=== PATIENT | male | born 1980 | race Caucasian/White ===

== ENCOUNTER → 2023-10-19 10:13 | Outpatient (REF) | payer OTHER, BC, SELFPAY ==
[2023-10-19 11:26] LABS: % Basophils 0.7 % (0-2); % Immature Granulocytes 0.7 % (0-0.5); % Lymphocytes 24.6 % (20.5-51.1); % Monocytes 11.5 % (1.7-9.3); % Neutrophils 62.5 % (42.2-75.2); Absolute Lymphocytes 1.4 10^3/uL (1.2-3.4); Absolute Monocytes 0.6 10^3/uL (0.1-0.6); Absolute Neutrophils 3.5 10^3/uL (1.4-6.5); Hematocrit 42.8 % (39.0-52.0); Hemoglobin 14.1 g/dL (13.0-18.0); Mean Corp Hgb Conc. 32.9 g/dL (33.0-37.0); Mean Corpuscular Volume 84.9 fL (80.0-94.0); Mean Platelet Volume 10.2 fL (7.4-10.4); Nucleated Red Blood Cells % 0 % (-); Platelet Count 224 10^3/uL (130-400); Red Blood Cell Count 5.04 10^6/uL (4.70-6.10); Red Cell Dist. Width 13.3 % (11.5-14.5); White Blood Cell Count 5.6 10^3/uL (4.8-10.8)
[2023-10-19 11:59] LABS: ALT (SGPT) 49 U/L (0-50); AST (SGOT) 31 U/L (17-59); Albumin 4.6 g/dl (3.5-5.0); Alkaline Phosphatase 49 U/L (38-126); Blood Urea Nitrogen 21 mg/dl (9-20); Calcium 9.5 mg/dl (8.4-10.2); Carbon Dioxide 24 mmol/L (22-30); Chloride 108 mmol/L (98-107); Glucose 94 mg/dl (70-99); HDL Cholesterol 40 mg/dl; LDL Cholesterol, Calculated 91 mg/dl; Potassium 4.2 mmol/L (3.5-5.1); Sodium 141 mmol/L (135-145); Total Bilirubin 0.8 mg/dl (0.2-1.3); Total Cholesterol 172 mg/dl (50-199); Total Protein 7.1 g/dl (6.3-8.2); Triglyceride 208 mg/dl (10-149); Very Low Density Lipoprotein 41 mg/dl (0-30); eGFR > 60.00
[2023-10-19 12:13] LABS: Vitamin D, 25-OH*** 29.9 ng/mL (30-80)
[2023-10-19 12:26] LABS: TSH 1.12 uIU/ml (0.47-4.68)
[2023-10-19 13:39] LABS: Glycohemoglobin (HgbA1c) 5.1 % (4.0-5.6)
== END ==
LOC: REG 10:13
PROVIDERS: ATTENDING PHYSICIAN Family Medicine
DX: Z00.00 Encounter for general adult medical examination without abnormal findings (principal); R73.09 Other abnormal glucose; F10.11 Alcohol abuse, in remission; Z79.899 Other long term (current) drug therapy; E78.1 Pure hyperglyceridemia; E78.89 Other lipoprotein metabolism disorders; E55.9 Vitamin D deficiency, unspecified
CPT/HCPCS: 36415; 80053; 80061; 82306; 83036; 84439; 84443; 85025

== ENCOUNTER → 2024-05-30 11:21 | Outpatient (REF) | payer BC, SELFPAY ==
[2024-05-30 12:14] LABS: % Basophils 0.9 % (0-2); % Immature Granulocytes 0.5 % (0-0.5); % Lymphocytes 27.1 % (20.5-51.1); % Monocytes 11.1 % (1.7-9.3); % Neutrophils 60.4 % (42.2-75.2); Absolute Basophils 0.1 10^3/uL (0-0.2); Absolute Lymphocytes 1.5 10^3/uL (1.2-3.4); Absolute Monocytes 0.6 10^3/uL (0.1-0.6); Absolute Neutrophils 3.3 10^3/uL (1.4-6.5); Hematocrit 44.1 % (39.0-52.0); Hemoglobin 14.7 g/dL (13.0-18.0); Mean Corp Hgb Conc. 33.3 g/dL (33.0-37.0); Mean Corpuscular Hgb 28.3 pg (27.0-31.0); Mean Platelet Volume 10.7 fL (7.4-10.4); Nucleated Red Blood Cells % 0 % (-); Platelet Count 245 10^3/uL (130-400); Red Blood Cell Count 5.19 10^6/uL (4.70-6.10); Red Cell Dist. Width 13.2 % (11.5-14.5); White Blood Cell Count 5.5 10^3/uL (4.8-10.8)
[2024-05-30 13:29] LABS: ALT (SGPT) 74 U/L (0-50); AST (SGOT) 38 U/L (17-59); Albumin 4.7 g/dl (3.5-5.0); Alkaline Phosphatase 53 U/L (38-126); Blood Urea Nitrogen 16 mg/dl (9-20); Calcium 9.5 mg/dl (8.4-10.2); Carbon Dioxide 25 mmol/L (22-30); Chloride 105 mmol/L (98-107); Glucose 93 mg/dl (70-99); Potassium 4.9 mmol/L (3.5-5.1); Sodium 140 mmol/L (135-145); Total Bilirubin 0.7 mg/dl (0.2-1.3); Total Protein 7.1 g/dl (6.3-8.2); eGFR > 60.00
== END ==
LOC: REG 11:21
PROVIDERS: ATTENDING PHYSICIAN Physician Assistant Medical
DX: K92.1 Melena (principal)
CPT/HCPCS: 36415; 80053; 85025

== ENCOUNTER → 2024-05-31 11:51 | Outpatient (REF) | payer BC, SELFPAY | LOC: REG 11:51 | PROVIDERS: ATTENDING PHYSICIAN Physician Assistant Medical; OTHER PHYSICIAN Student in an Organized Health Care Education/Training Program | DX: R19.7 Diarrhea, unspecified (principal) | CPT/HCPCS: 87045; 87046; 87324; 87328; 87329; 87427; 87449 ==

== ENCOUNTER → 2024-06-06 13:08 | Outpatient (REF) | payer BC, SELFPAY ==
[2024-06-06 13:54] LABS: Hematocrit 44.2 % (39.0-52.0); Hemoglobin 15.1 g/dL (13.0-18.0); Mean Corp Hgb Conc. 34.2 g/dL (33.0-37.0); Mean Corpuscular Hgb 28.9 pg (27.0-31.0); Mean Corpuscular Volume 84.5 fL (80.0-94.0); Mean Platelet Volume 10.9 fL (7.4-10.4); Platelet Count 244 10^3/uL (130-400); Red Blood Cell Count 5.23 10^6/uL (4.70-6.10); Red Cell Dist. Width 13.3 % (11.5-14.5); White Blood Cell Count 4.7 10^3/uL (4.8-10.8)
[2024-06-06 14:23] LABS: ALT (SGPT) 88 U/L (0-50); AST (SGOT) 42 U/L (17-59); Albumin 4.8 g/dl (3.5-5.0); Alkaline Phosphatase 52 U/L (38-126); Blood Urea Nitrogen 15 mg/dl (9-20); Calcium 9.6 mg/dl (8.4-10.2); Carbon Dioxide 26 mmol/L (22-30); Chloride 104 mmol/L (98-107); Glucose 93 mg/dl (70-99); Potassium 4.7 mmol/L (3.5-5.1); Sodium 140 mmol/L (135-145); Total Bilirubin 1.1 mg/dl (0.2-1.3); Total Protein 7.2 g/dl (6.3-8.2); eGFR > 60.00
[2024-06-06 14:53] LABS: TSH Reflex To Free T4 1.08 uIU/ml (0.47-4.68)
[2024-06-06 15:30] LABS: IgA 124 mg/dl (70-400)
[2024-06-06 18:46] LABS: Hepatitis B Surface Antigen Negative (Negative)
[2024-06-06 18:53] LABS: Hepatitis A IgM Antibody Negative (Negative)
[2024-06-06 19:04] LABS: Hepatitis B Core Ab, Total Negative (Negative); Hepatitis C Antibody Negative (Negative)
[2024-06-06 20:55] LABS: Hepatitis A Antibody, Total Borderline (Negative); Hepatitis B Surface Antibody Indeterminate
== END ==
LOC: REG 13:08
PROVIDERS: ATTENDING PHYSICIAN Student in an Organized Health Care Education/Training Program; FAMILY PHYSICIAN Physician Assistant Medical
DX: R19.4 Change in bowel habit (principal); R19.7 Diarrhea, unspecified; R79.89 Other specified abnormal findings of blood chemistry
CPT/HCPCS: 36415; 74019; 80053; 82784; 84443; 85027; 86364; 86704; 86706; 86708; 86709; 86803; 87340

== ENCOUNTER → 2024-06-10 14:21 | Outpatient (REF) | payer BC, SELFPAY ==
[2024-06-13 01:18] LABS: Calprotectin, Fecal <5 ug/g (<=49); Pancreatic Elastase, Fecal 239 ug/g (>=100)
== END ==
LOC: REG 14:21
PROVIDERS: ATTENDING PHYSICIAN Student in an Organized Health Care Education/Training Program; FAMILY PHYSICIAN Physician Assistant Medical
DX: R19.4 Change in bowel habit (principal); R19.7 Diarrhea, unspecified
CPT/HCPCS: 82653; 83993

== ENCOUNTER 2024-07-03 06:22 | Day surgery (SDC) | payer BC, SELFPAY | END 2024-07-03 11:24 | disposition home or self-care (01) | LOC: GI 06:22 | PROVIDERS: ATTENDING PHYSICIAN Student in an Organized Health Care Education/Training Program; FAMILY PHYSICIAN Physician Assistant Medical | DX: Z12.11 Encounter for screening for malignant neoplasm of colon (principal); K57.30 Diverticulosis of large intestine without perforation or abscess without bleeding; K31.89 Other diseases of stomach and duodenum; R14.0 Abdominal distension (gaseous); R19.7 Diarrhea, unspecified; K62.1 Rectal polyp; K63.5 Polyp of colon; K63.89 Other specified diseases of intestine | CPT/HCPCS: 45380; 43239; 88305; 88342 ==

== ENCOUNTER → 2024-07-18 09:46 | Outpatient (REF) | payer BC, SELFPAY ==
[2024-07-18 11:37] LABS: ALT (SGPT) 65 U/L (0-50); AST (SGOT) 39 U/L (17-59); Albumin 4.3 g/dl (3.5-5.0); Alkaline Phosphatase 63 U/L (38-126); Blood Urea Nitrogen 14 mg/dl (9-20); Calcium 9.4 mg/dl (8.4-10.2); Carbon Dioxide 27 mmol/L (22-30); Chloride 105 mmol/L (98-107); Glucose 88 mg/dl (70-99); Iron 99 ug/dl (49-181); Potassium 4.3 mmol/L (3.5-5.1); Sodium 139 mmol/L (135-145); Total Bilirubin 1.2 mg/dl (0.2-1.3); eGFR > 60.00
[2024-07-18 11:46] LABS: Percent Saturation 33 % (20-50); Total Iron Binding Capacity 300 ug/dl (261-462)
[2024-07-18 12:14] LABS: Ferritin 44.6 ng/ml (17.9-464.0)
[2024-07-18 20:48] LABS: Hepatitis A Antibody, Total Negative (Negative); Hepatitis B Surface Antibody Indeterminate
[2024-07-19 18:01] LABS: IgG Subclass 1 551 mg/dL (240-1118); IgG Subclass 2 285 mg/dL (124-549); IgG Subclass 3 31 mg/dL (21-134); IgG Subclass 4 31 mg/dL (1-123)
[2024-07-19 20:32] LABS: Mitochondrial M2 Ab, IgG 7.7 Units (0.0-24.9)
[2024-07-19 22:02] LABS: ANA, IgG Reflex to HEp-2 None Detected (None Detected)
[2024-07-19 23:22] LABS: Alpha-1-Antitrypsin 128 mg/dL (90-200); Ceruloplasmin 25 mg/dL (15-30)
[2024-07-20 03:15] LABS: Soluble Liver Antigen Ab 1.8 U (0.0-24.9)
[2024-07-20 09:53] LABS: F-Actin Antibody IgG 36 Units (0-19)
== END ==
LOC: REG 09:46
PROVIDERS: ATTENDING PHYSICIAN Student in an Organized Health Care Education/Training Program; FAMILY PHYSICIAN Physician Assistant Medical
DX: R79.89 Other specified abnormal findings of blood chemistry (principal)
CPT/HCPCS: 36415; 80053; 82103; 82390; 82728; 82787; 83516; 83540; 83550; 86015; 86038; 86376; 86381; 86706; 86708

== ENCOUNTER → 2024-08-08 08:50 | Outpatient (REF) | payer BC, SELFPAY | LOC: RAD 08:50 | PROVIDERS: ATTENDING PHYSICIAN Student in an Organized Health Care Education/Training Program; FAMILY PHYSICIAN Physician Assistant Medical | DX: R79.89 Other specified abnormal findings of blood chemistry (principal) | CPT/HCPCS: 76700; 93975 ==

== ENCOUNTER → 2024-09-19 07:29 | Outpatient (REF) | payer BC, SELFPAY ==
[2024-09-19 09:30] LABS: Hematocrit 43.7 % (39.0-52.0); Mean Corp Hgb Conc. 34.3 g/dL (33.0-37.0); Mean Corpuscular Volume 84.4 fL (80.0-94.0); Mean Platelet Volume 10.7 fL (7.4-10.4); Platelet Count 276 10^3/uL (130-400); Red Blood Cell Count 5.18 10^6/uL (4.70-6.10); Red Cell Dist. Width 13.4 % (11.5-14.5)
[2024-09-19 10:33] LABS: ALT (SGPT) 58 U/L (0-50); AST (SGOT) 34 U/L (17-59); Albumin 4.5 g/dl (3.5-5.0); Alkaline Phosphatase 47 U/L (38-126); Blood Urea Nitrogen 10 mg/dl (9-20); Calcium 9.5 mg/dl (8.4-10.2); Carbon Dioxide 25 mmol/L (22-30); Chloride 110 mmol/L (98-107); Glucose 79 mg/dl (70-99); Potassium 4.4 mmol/L (3.5-5.1); Sodium 142 mmol/L (135-145); Total Bilirubin 1.1 mg/dl (0.2-1.3); Total Protein 7.3 g/dl (6.3-8.2); eGFR > 60.00
[2024-09-21 03:56] LABS: F-Actin Antibody IgG 29 Units (0-19)
[2024-09-22 00:02] LABS: Smooth Muscle Antibody Titer 1:20 (<1:20)
== END ==
LOC: REG 07:29
PROVIDERS: ATTENDING PHYSICIAN Student in an Organized Health Care Education/Training Program
DX: R79.89 Other specified abnormal findings of blood chemistry (principal); K76.0 Fatty (change of) liver, not elsewhere classified
CPT/HCPCS: 36415; 80053; 85027; 86015; 86256

== ENCOUNTER → 2025-01-01 07:25 | Outpatient (REF) | payer BC, SELFPAY | LOC: MRI 07:25 | PROVIDERS: ATTENDING PHYSICIAN Student in an Organized Health Care Education/Training Program; FAMILY PHYSICIAN Physician Assistant Medical | DX: R79.89 Other specified abnormal findings of blood chemistry (principal); K76.0 Fatty (change of) liver, not elsewhere classified | CPT/HCPCS: 74183; 76391; A9575 ==

== ENCOUNTER → 2025-01-29 12:24 | Outpatient (REF) | payer BC, SELFPAY | LOC: MRI 3T 12:24 | PROVIDERS: ATTENDING PHYSICIAN Student in an Organized Health Care Education/Training Program; FAMILY PHYSICIAN Physician Assistant Medical | DX: R19.00 Intra-abdominal and pelvic swelling, mass and lump, unspecified site (principal) | CPT/HCPCS: 72197; A9575 ==

== ENCOUNTER → 2025-03-13 11:07 | Outpatient (REF) | payer BC, SELFPAY ==
[2025-03-13 12:18] LABS: Urine Character Clear (Clear)
== END ==
LOC: REG 11:07
PROVIDERS: ATTENDING PHYSICIAN Physician Assistant Medical
DX: R31.9 Hematuria, unspecified (principal)
CPT/HCPCS: 81003; 87086

== ENCOUNTER 2025-03-21 06:20 | Day surgery (SDC) | payer BC, SELFPAY ==
[2025-03-07 11:21] LABS: Hematocrit 43.7 % (39.0-52.0); Hemoglobin 14.7 g/dL (13.0-18.0); Mean Corp Hgb Conc. 33.6 g/dL (33.0-37.0); Mean Corpuscular Volume 87.4 fL (80.0-94.0); Platelet Count 228 10^3/uL (130-400); Red Cell Dist. Width 13.4 % (11.5-14.5)
[2025-03-07 12:05] LABS: Blood Urea Nitrogen 12 mg/dl (9-20); Calcium 9.3 mg/dl (8.4-10.2); Carbon Dioxide 29 mmol/L (22-30); Chloride 104 mmol/L (98-107); Glucose 68 mg/dl (70-99); Potassium 4.3 mmol/L (3.5-5.1); Sodium 141 mmol/L (135-145); eGFR > 60.00
[2025-03-07 13:55] VITALS: BMI 32.4
[2025-03-21] VITALS (8 sets, daily range): BP systolic 105–116; BP diastolic 70–77; BMI 32.1
[2025-03-21] MEDS: TYLENOL 1000 MG PO (13:20)
[2025-03-21] MEDS: NORMOSOL-R/PLASMALYTE-A 1000 IV (13:26)
== END 2025-03-21 16:30 | disposition home or self-care (01) ==
LOC: SDS 06:20
PROVIDERS: ATTENDING PHYSICIAN Surgery; FAMILY PHYSICIAN Physician Assistant Medical
DX: D36.10 Benign neoplasm of peripheral nerves and autonomic nervous system, unspecified (principal); R19.09 Other intra-abdominal and pelvic swelling, mass and lump
CPT/HCPCS: 49329; 36415; 80048; 85027; 88305; 88307; 93005